=== PATIENT | female | born 1955 | race Two or more races ===

== ENCOUNTER 2016-09-17 01:54 | Inpatient (IN) | payer BC ==
[~2016-09-17] VITALS: Ht 170.2 cm; Wt 67.1 kg
--- NOTE | ~2016-09-17 | WND ---
ADMIT: 09/17/2016 RM/LOC: [address] [facility] MR#: [id number] [id number] [place], [place] [address] MIRELA BRADLEY [address] [place] [address] [facility] SEX: F AGE: 61 : 1955 DATE OF VISIT: 09/17/2016 TIME OF VISIT: 15 minutes. REASON FOR VISIT: Right groin abscess. HISTORY OF PRESENT ILLNESS: Ms. Bradley is a 61-year-old female, who presented to the emergency room for a reddened area on her right groin that started approximately 8 days ago. She was seen by a physician on Tuesday. At which time, the abscessed area was opened and a wick was placed in it. She returned on Tuesday, and at that time, they did a wound culture and placed her on antibiotics. Since that time, she has been feeling worse and recently developed abdominal pain, nausea, and vomiting. She also reports not being able to take her medications for diabetes as she has been unable to afford them. PAST MEDICAL HISTORY: Type 2 diabetes mellitus, left patellar fracture, and bilateral carpal tunnel. ALLERGIES: Tetracycline. SOCIAL HISTORY: She is unemployed and on disability. She denies ever smoking. She denies illicit drug use or alcohol use. FAMILY HISTORY: Positive for heart disease and diabetes. REVIEW OF SYSTEMS: Significant for pain in that right medial thigh area. She has had fever, chills, nausea, and vomiting in the past 24 hours. She denies chest pain, shortness of breath, or cough. PHYSICAL EXAMINATION: Assessment of the area to the right groin where the I and D was completed reveals a full-thickness wound that measures 1 cm in length x 0.3 cm in width x 1.5 cm in depth with undermining of 0.5 cm circumferential. Wound bed is a pale allen tissue with significant odor. ADMIT: 09/17/2016 RM/LOC: [address] [facility] MR#: [id number] [id number] [place], [place] [address] [facility] [address] [place] [address] W[facility] Care Clinic SEX: F AGE: 61 : 1955 Medial to that, she has 2 open areas, the larger one measuring 2.8 cm in length x 1 cm in width with brown eschar covering it. Periwound skin is red, warm, and indurated. She is very tender to palpation. ASSESSMENT: Right groin abscess. PLAN: Staff will irrigate right groin wound with saline twice daily and apply dry gauze and tape to secure. I would also like them to apply hot packs to the area using a warm moist washcloth for 15 minutes every 2 hours while awake. WOCN will continue to monitor while she is in the hospital. I would like to thank Dr. Martinez for allowing us to participate in her care. Lynn Arellano APRN/ sonido JOB #: [id number] CC: Andra Martinez MD, Attending Physician Jeanette Rayo MD, Family Physician
--- NOTE | 2016-09-18 12:25 | CO ---
ADMIT: 09/17/2016 RM/LOC: [address] [facility] MR#: [id number] [address] [address] MIRELA IZQUIERDO [address] [place] [address] Consultation SEX: F AGE: 61 : 1955 DATE OF CONSULTATION: 09/17/2016 ATTENDING PHYSICIAN: Andra Martinez CONSULTING PHYSICIAN: Markie Bennett MD REASON FOR CONSULTATION: Question of abscess right kind of inner thigh. HISTORY OF PRESENT ILLNESS: This patient is a 61-year-old female with diabetes, who is poorly controlled, looks like she was admitted mainly for diabetic control, but has a lesion in her right groin that sounds like it had been there may be a week a little longer. She went and saw the doctor, who ultimately opened it up, a fair amount of pus per the daughter in the room returned from that they placed a wick in it, did cultures, I do not have those results currently. She was placed on p.o. antibiotics. She started to feel worse and has not been I do not think taking her medications overall for her diabetes, and ultimately came into the emergency room in basically kind of a DKA type of a situation. When I evaluate this right groin area, there is an about a 1.5 cm to 2 cm opening that has some mild drainage. There is some induration more medially and superiorly. Then, laterally, there is a little kind of eschar of skin, but I do not feel any fluctuance under here. I do not feel anything currently that feels like it needs to be drained either. They did do an ultrasound, which I did not know, I reviewed it after evaluating her, and it does not show any evidence of any fluid collections, abscess, or collections underneath here. PAST MEDICAL HISTORY: Significant for the above, as well as evidently, she has had bilateral carpal tunnel, a knee surgery, and diabetes. CURRENT MEDICATIONS: Please see list on the chart. ALLERGIES: SHE HAS AN ALLERGY TO TETRACYCLINE. FAMILY HISTORY: Noncontributory for this. SOCIAL HISTORY: Evidently, disabled. Denies any significant alcohol and/or tobacco. PHYSICAL EXAMINATION: GENERAL: Currently, when I see her, she is feeling better overall and the pain is better in her right inner thigh she states. ADMIT: 09/17/2016 RM/LOC: [address] [facility] MR#: [id number] [address] [address] [id number] [place] [address] Consultation SEX: F AGE: 61 : 1955 She is alert and oriented. She is in no significant distress. EYES: Her sclerae appear nonicteric. CHEST: Clear anteriorly. HEART: Regular rate and rhythm. ABDOMEN: Soft, benign. No pain. No mass or organomegaly. EXTREMITIES: The right inner thigh area is described as above. Nothing else significant or different. ASSESSMENT AND PLAN: At this time, continue IV antibiotics. I will keep a close eye on this. Currently, do not see anything that I feel which needs to be taken to the operating room to I and D, but we will keep a close eye on it, if something changes, we will take to the OR or debride as needed. Markie Bennett MD/ sonido JOB #: [id number] CC: Andra Martinez, Attending Physician Jeanette Rayo, Family Physician
[2016-09-22] MEDS ORDERED: NOVOLIN N100 UNIT/1 SQ (13:36)
[2016-09-22] MEDS ORDERED: NOVOLIN R100 UNIT/1 SQ ×2 (13:37→13:38)
[2016-09-22] MEDS ORDERED: LEVAQUIN DPS500 MG PO (13:40)
[2016-09-22] MEDS ORDERED: KEFLEX-DPS500 MG PO (13:40)
--- NOTE | 2016-09-25 07:32 | ER ---
ADMIT: 09/17/2016 RM/LOC: [address] [facility] MR#: [id number] [id number] [place], [place] [address] MIRELA IZQUIERDO [address] [place] [address] Emergency Room Report SEX: F AGE: 61 : 1955 DATE: 09/17/2016 CHIEF COMPLAINT: Feels sick, abdominal cramps and nausea. HISTORY OF PRESENT ILLNESS: The patient is a 61-year-old female, who has a history of diabetes and she admits that she has not been doing a good job in taking care of it because she has financial problems. Additionally, states that she began developing a sore on her right medial thigh approximately 1 week ago, and she presented to her primary care physician's office 2 days ago and it was drained at that time and she was placed on antibiotics. She states in the interim, she has had increasing abdominal cramps and has developed nausea, vomiting, been trying to drink a lot of fluids and has been extremely thirsty and urinating a lot. She denies any chest pain or difficulty breathing. She has not have any change in bowel function, no diarrhea. REVIEW OF SYSTEMS: A 10-point review of systems is done and otherwise negative except as in HPI. PAST MEDICAL HISTORY: Diabetes. PAST SURGICAL HISTORY: A left patella surgery and a . MEDICATIONS: See nurse's note. ALLERGIES: SEE NURSE'S NOTE. SOCIAL HISTORY: The patient denies drug or alcohol use. PHYSICAL EXAMINATION: GENERAL: The patient is alert. She is uncomfortable. HEENT: Head is atraumatic. Pupils are equally round and reactive to the light. She does have dry mucous membranes. HEART: Tachycardic. LUNGS: Clear to auscultation. ABDOMEN: Diffusely tender, but soft. SKIN: Warm and dry. MUSCULOSKELETAL: She has equal neuro and motor examination of all 4 extremities, no pedal edema. Examination of her right medial aspect of her thigh shows an area of approximately 12 x 15 cm that is indurated with a central area that is opened up and has a void or pocket where it looks like she has had an abscess drained. There is some scant drainage from this area, but I do not feel any fluctuance and there is only mild erythema. LABORATORY DATA: White count is 10.2, platelets 426. Sodium 133, potassium 4.5, carbon dioxide 6, BUN 33, glucose 427, creatinine 0.9, lactic is 1.9. The calculated anion gap is 25. She has moderate serum ketones. CK is 35, MB is less than 0.5, INR is 1.0. ABG shows a pH of 7.27, pCO2 of 12.4, PO2 of 117. EMERGENCY DEPARTMENT COURSE: The patient presented, I am concerned that she has DKA. We went ahead and started an IV and started giving the patient a ADMIT: 09/17/2016 RM/LOC: [address] [facility] MR#: [id number] [address] [place] [address] [id number] [place] [address] Emergency Room Report SEX: F AGE: 61 : 1955 fluid bolus of normal saline. She did have nausea and that was treated with Zofran with significant improvement in her symptoms. Her abdominal discomfort and cramps improved with fluid hydration and 2 mg of morphine. Labs show that she does indeed have DKA, and I believe this is a combination of her poorly controlled diabetes and her current infectious process in her right thigh. She normally sees Dr. Rayo, so I contacted Dr. Martinez, who graciously agrees to admit the patient to her service for further management. We went ahead and started our sepsis routine on the patient, and she was given a first dose of Rocephin in the Emergency Department. DIAGNOSES: 1. Diabetic ketoacidosis. 2. Poorly controlled diabetes. 3. Dehydration. 4. Nausea, vomiting. 5. Abdominal cramps. 6. Right thigh abscess. Mike Lambert MD/ sonido JOB #: [id number] CC: Andra Martinez MD, Attending Physician Jeanette Rayo MD, Family Physician
--- NOTE | 2016-09-28 09:43 | HP ---
ADMIT: 09/17/2016 RM/LOC: [address] [facility] MR#: [id number] [id number] [place], [place] [address] MIRELA BRADLEY [address] [place] [address] History and Physical SEX: F AGE: 61 : 1955 DATE OF SERVICE: CHIEF COMPLAINT: Nausea, vomiting, abdominal pain, right groin lesion. HISTORY OF PRESENT ILLNESS: Ms. Bradley is a 61-year-old female. She has a past medical history significant for poorly-controlled diabetes mellitus, who reports she had a cyst in her right groin that started approximately 8 days prior to admission. She had called her doctor to try to get in, but was unable to get in for approximately 4 days. She reports that she was seen by her doctor on Tuesday, had a right groin lesion opened, had a wick placed in it and returned on Tuesday, reports that there was a culture done. She also was placed on p.o. antibiotics. Reports she started feeling worse about that time. Reports that she has diabetes, has been unable to afford her medications due to her being unable to work. She reports that she overall has been not feeling well; has developed abdominal pain, nausea, vomiting last nigh; was brought in, was found to have a pH of 7.27 with a bicarb of 6 and anion gap of 30, moderate serum ketones, therefore, felt warranted admission for further evaluation and treatment. She reports that she has not really had a fever at all, notes that overall nothing else makes her symptoms better or worse and she has no other associated symptoms. PAST MEDICAL HISTORY: Significant for: 1. Diabetes. 2. She did have a left patellar fracture previously. 3. Bilateral carpal tunnel. MEDICATIONS: Otherwise, her medication list is not available to me. ALLERGIES: TETRACYCLINE. SOCIAL HISTORY: She is unemployed, but she is on disability. She does not smoke and has never smoked. She does not use any significant alcohol. FAMILY HISTORY: She reports is positive for heart disease and diabetes. REVIEW OF SYSTEMS: Obtained, was otherwise essentially negative. She reports she feels a little short of breath, maybe a little bit of heaviness in her chest. Reports that she had a right anterior craft lesion also, which she reports kind of opened up about 2 weeks ago and has been draining. PHYSICAL EXAMINATION: GENERAL: She is alert and oriented. She is in no apparent distress. HEENT: Pupils are equal, round, reactive. Oropharynx has dry mucous membranes. NECK: Supple. HEART: Tachycardic rate with a regular rhythm without a murmur. LUNGS: Clear to auscultation. ABDOMEN: Soft. Bowel sounds are hypoactive. Her right groin is noted to have kind of a small open wound, this may be 1-1/2 x 1/2 cm that has some ADMIT: 09/17/2016 RM/LOC: [address] [facility] MR#: [id number] [address] [place] [id number] [place] [address] History and Physical SEX: F AGE: 61 : 1955 grayish drainage on it. She has a large area of induration around there up into the groin. She has an open clean based ulceration across her anterior craft that seems to be scabbed over with some mild surrounding erythema. Diminished distal pulses. ASSESSMENT AND PLAN: 1. Diabetic ketoacidosis. At this time, we will go ahead and admit, give her IV fluids as well as IV insulin and monitor her electrolytes. 2. Metabolic acidosis. 3. Right groin abscess. 4. Right craft lesion. We will ask Surgery to see. We will get a Doppler. 5. Poorly-controlled diabetes mellitus. We will have diabetic education. We will see if we can get her some more affordable medication. Otherwise, we will plan to follow along closely, did discuss the severity of illness with the patient and her daughter. I spent 45 minutes in critical care time caring for this patient. Andra Martinez MD/ sonido JOB #: [id number] CC: Andra Martinez, Attending Physician Jeanette Rayo, Family Physician
--- NOTE | 2016-10-13 13:22 | DS ---
ADMIT: 09/17/2016 RM/LOC: 405 [facility] MR#: [id number] [address] [address] MIRELA IZQUIERDO [address] [place] [address] Discharge Summary SEX: F AGE: 61 : 1955 ADMISSION DATE: 09/17/2016 DISCHARGE DATE: 09/21/2016 DISCHARGE DIAGNOSES: 1. Abdominal pain. 2. Diabetes with DKA (diabetic ketoacidosis). 3. Right groin abscess. 4. Hypokalemia. 5. Hypophosphatemia. 6. Dehydration. 7. Streptococcus infection. 8. Neuropathy. HOSPITAL COURSE: The patient was admitted through the ER. She went to the ICU due to her dehydration and diabetic ketoacidosis. She was given aggressive fluid hydration as well as IV insulin. She was seen by surgery with her groin abscess. They opened it up a little bit but really did not do much during her hospital stay. Otherwise, she was given IV antibiotics. Her electrolytes were replaced. She was seen by Wound Care. She was seen by dietitian. She was up ambulating. Overall, the patient was doing much better. Her fever was gone. She was started on some insulin, her blood sugars were well controlled. The plan was for patient to be discharged home. She was discharged home on NPH 12 units subcu b.i.d., regular 5 units with meals three times daily and low-dose sliding scale, Levaquin 500 mg p.o. daily x10, Keflex 500 mg p.o. t.i.d. x10. Andra Martinez MD/ teja JOB #: [id number] CC: Andra Martinez MD, Attending Physician Jeanette Rayo MD, Family Physician
== END 2016-09-21 15:50 | disposition home or self-care (01) | DRG 638 ==
LOC: ER 01:54 → 3ICU 04:24 → 4PCU 04:24 → 3ICU 05:16 → 4PCU 09-19 11:41
PROVIDERS: ADMIT Internal Medicine
DX: E13.10 Other specified diabetes mellitus with ketoacidosis without coma (principal); L02.214 Cutaneous abscess of groin; E83.39 Other disorders of phosphorus metabolism; E86.0 Dehydration; B95.4 Other streptococcus as the cause of diseases classified elsewhere; E87.6 Hypokalemia; T38.3X6A Underdosing of insulin and oral hypoglycemic [antidiabetic] drugs, initial encounter; Z91.120 Patient's intentional underdosing of medication regimen due to financial hardship; Z79.84 Long term (current) use of oral hypoglycemic drugs